=== PATIENT | female | born 1950 | race Two or more races ===

== ENCOUNTER 2019-05-25 08:39 | Day surgery (SDC) | payer MEDICARE ==
[~2019-05-25] VITALS: Ht 157.5 cm; Wt 72.6 kg
[~2019-05-25 08:39] MED LIST: ALBU90OI6 INH; ASPI81CH PO; CHOL10002 PO; CIPR500 PO; CLON.5 PO; CYCL10 PO; DULO30; DULO30 PO; DULO60; ESTR2; ESTR2 PO; FEXO180 PO; FEXO60; HYDMOR4; HYDMOR4 PO; HYOS.125 SL; KETO10 PO; LEVSOD50 PO; LIDO700A20 TOP; LISI5 PO; LOSA25; MARIJUANA-MEDICAL; MOMENI; NAPR500 PO; NITR.4SL SL; OMEP40CA12 PO; OXYACE5T PO; OXYACE7.5T PO; PARO10 PO; PRED20; PREG50; PROM25; PROM25 PO; TRIA80TC TOP; [UNRECOGNIZED DRUG - OTHER] PO; [UNRECOGNIZED DRUG - REMARK]
--- NOTE | 2019-05-25 09:43 | NUR ---
05/25/19 0942 Ami Herrera CHECK ON PT IN PRE OP. WARM BLANKET PROVIDED. PT RESTING COMFORTABLY WITH FAMILY AT BEDSIDE. CALL LIGHT WITHIN REACH. WILL CONTINUE TO MONITOR.
== END 2019-05-25 11:27 | disposition home or self-care (01) ==
LOC: ORSCSDS 08:39
PROVIDERS: Internal Medicine Gastroenterology
PROC: 0DBE8ZX Excision of Large Intestine, Via Natural or Artificial Opening Endoscopic, Diagnostic (ICD-10-PCS; principal; 2019-05-25 10:00)
PROC: 0DB68ZX Excision of Stomach, Via Natural or Artificial Opening Endoscopic, Diagnostic (ICD-10-PCS; principal; 2019-05-25 10:00)
PROC: 0DB98ZX Excision of Duodenum, Via Natural or Artificial Opening Endoscopic, Diagnostic (ICD-10-PCS; principal; 2019-05-25 10:00)
PROC: 0DB58ZX Excision of Esophagus, Via Natural or Artificial Opening Endoscopic, Diagnostic (ICD-10-PCS; principal; 2019-05-25 10:00)
DX: R19.7 Diarrhea, unspecified (principal); K62.5 Hemorrhage of anus and rectum; R10.9 Unspecified abdominal pain; K21.9 Gastro-esophageal reflux disease without esophagitis; K22.70 Barrett's esophagus without dysplasia; K52.831 Collagenous colitis; R11.0 Nausea; K57.30 Diverticulosis of large intestine without perforation or abscess without bleeding; K64.8 Other hemorrhoids; K64.4 Residual hemorrhoidal skin tags; K44.9 Diaphragmatic hernia without obstruction or gangrene; Z80.0 Family history of malignant neoplasm of digestive organs; I10 Essential (primary) hypertension; J45.909 Unspecified asthma, uncomplicated; E03.9 Hypothyroidism, unspecified; E78.00 Pure hypercholesterolemia, unspecified; Z79.899 Other long term (current) drug therapy
CPT/HCPCS: 88305; 88342; J2704; J7120

== ENCOUNTER 2020-11-11 10:22 | Emergency (ER) | payer OTHER ==
[~2020-11-11] VITALS: Ht 157.5 cm; Wt 83.5 kg
[2020-11-11 10:48] LABS: Source, Urine Clean Catch
[2020-11-11 10:55] LABS: BASOPHILS ABSOLUTE AUTO 0.07 K/mm3 (0.00-0.23); BASOPHILS PERCENT AUTO 1 % (0-2); Bilirubin, Urine Neg (Neg); Blood, Urine 3+ (Neg); EOSINOPHILS ABSOLUTE AUTO 0.07 K/mm3 (0.00-0.68); EOSINOPHILS PERCENT AUTO 1 % (0-6); Glucose Qualitative, Urine Neg (Neg); Hematocrit 40.2 % (33.0-51.0); Hemoglobin 12.9 g/dL (11.5-16.0); IMMATURE GRAN ABSOLUTE AUTO 0.03 K/mm3 (0.00-0.10); IMMATURE GRAN PERCENT AUTO 0 % (0-1); Ketones, Urine Neg (Neg); LYMPHOCYTES PERCENT AUTO 31 % (21-46); Leukocyte Esterase, Urine 1+ (Neg); MONOCYTES ABSOLUTE AUTO 0.44 K/mm3 (0.16-1.47); MONOCYTES PERCENT AUTO 5 % (4-13); Mean Corpuscular HGB 30.5 pg (26.0-34.0); Mean Corpuscular HGB Conc 32.1 g/dL (31.5-36.5); Mean Corpuscular Volume 95 fL (80-100); Mean Platelet Volume 10.4 fL (9.1-12.4); NEUTROPHILS ABSOLUTE AUTO 5.74 K/mm3 (1.96-9.15); NEUTROPHILS PERCENT AUTO 62 % (41-73); Nitrite, Urine Neg (Neg); Platelet Count 305 K/mm3 (150-400); Protein, Urine 1+ (Neg); RDW Standard Deviation 45.3 fL (35.1-46.3); Red Blood Cell Count 4.23 M/mm3 (3.80-5.20); Specific Gravity, Urine 1.015 (1.003-1.022); Urobilinogen, Urine NORM (Normal); White Blood Cell Count 9.25 K/mm3 (4.00-11.30); pH, Urine 6.5 (5.0-8.0)
[2020-11-11 11:10] LABS: Appearance, Urine Clear (Clear); Color, Urine Yellow (P-Yellow)
[2020-11-11 11:11] LABS: Alanine Aminotransfer (ALT/SGP 24 U/L (12-78); Albumin, Blood 3.9 g/dL (3.4-5.0); Albumin/Globulin Ratio 1.1 (0.8-1.8); Alk Phos 75 U/L (50-136); Anion Gap 7 mmol/L (6-16); Aspartate Aminotrans (AST/SGOT 11 U/L (12-37); Bilirubin, Total 0.3 mg/dL (0.1-1.0); Blood Urea Nitrogen 12 mg/dL (8-24); Bun/Creatinine Ratio 18.4 (12.0-20.0); CO2, Blood 28 mmol/L (21-32); Calcium, Blood 8.9 mg/dL (8.5-10.1); Chloride, Blood 105 mmol/L (98-108); Creatinine, Blood 0.65 mg/dL (0.40-1.00); Globulin, Blood 3.7 g/dL (2.2-4.0); Glomerular Filtration Rate >60 (60-); Glucose, Blood 97 mg/dL (70-99); Potassium, Blood 3.8 mmol/L (3.5-5.5); Sodium, Blood 140 mmol/L (136-145); Total Protein, Blood 7.6 g/dL (6.4-8.2)
[2020-11-11 11:12] LABS: Bacteria Few /hpf; Squamous Epithelial Cells Few /hpf (Few)
[2020-11-11] MEDS ORDERED: Pyridium100 MG PO (12:56)
[2020-11-11] MEDS ORDERED: CEFP200 PO (12:56)
[2020-11-11] MEDS ORDERED: Norco 5-325 Ta1 EACH PO (13:27)
== END 2020-11-11 13:49 | disposition home or self-care (01) ==
LOC: ER 10:22
PROVIDERS: Emergency Medicine
DX: N39.0 Urinary tract infection, site not specified (principal); Z91.09 Other allergy status, other than to drugs and biological substances; Z91.02 Food additives allergy status; Z91.018 Allergy to other foods; Z79.899 Other long term (current) drug therapy; Z79.82 Long term (current) use of aspirin; Z87.891 Personal history of nicotine dependence
CPT/HCPCS: 74176; 80053; 81001; 85025; 87086; 96374; 96375; 99284-25; A9270; J0696; J1885

== ENCOUNTER 2023-08-12 09:48 | Inpatient (IN) | payer OTHER ==
[~2023-08-12] VITALS: Ht 157.5 cm; Wt 94.0 kg
[~2023-08-12 09:48] MED LIST changes: +Ativan0.5 MG PO; +BUDESONIDE EC3 M6 PO; +CEFP200 PO; +DULOXETINE HCL60 M1 PO; +EUTHYROX50 MCG PO; -LEVSOD50 PO; +Norco 5-325 Ta1 EACH PO; +OMEP20ER PO; -OMEP40CA12 PO; +Pyridium100 MG PO; +TELMISARTAN20 MG PO
[2023-08-12] MEDS ORDERED: METO25ER PO (10:03)
[2023-08-12] MEDS ORDERED: GABA300 PO (10:05)
[2023-08-12] MEDS ORDERED: ALLEGRA HIVES180 MG PO (10:06)
[2023-08-12] MEDS ORDERED: APRISO0.375 GM PO (10:07)
[2023-08-12] MEDS ORDERED: ORAZINC PO (10:08)
[2023-08-12 10:11] LABS: BASOPHILS ABSOLUTE AUTO 0.06 K/mm3 (0.00-0.23); BASOPHILS PERCENT AUTO 1 % (0-2); EOSINOPHILS ABSOLUTE AUTO 0.04 K/mm3 (0.00-0.68); EOSINOPHILS PERCENT AUTO 0 % (0-6); Hematocrit 39.8 % (33.0-51.0); Hemoglobin 12.8 g/dL (11.5-16.0); IMMATURE GRAN PERCENT AUTO 1 % (0-1); LYMPHOCYTES ABSOLUTE AUTO 4.27 K/mm3 (0.84-5.20); LYMPHOCYTES PERCENT AUTO 34 % (21-46); MONOCYTES ABSOLUTE AUTO 0.66 K/mm3 (0.16-1.47); MONOCYTES PERCENT AUTO 5 % (4-13); Mean Corpuscular HGB 31.1 pg (26.0-34.0); Mean Corpuscular HGB Conc 32.2 g/dL (31.5-36.5); Mean Corpuscular Volume 97 fL (80-100); Mean Platelet Volume 10.1 fL (9.1-12.4); NEUTROPHILS ABSOLUTE AUTO 7.45 K/mm3 (1.96-9.15); NEUTROPHILS PERCENT AUTO 59 % (41-73); Platelet Count 334 K/mm3 (150-400); RDW Coefficient Variation 14.7 % (11.7-14.2); RDW Standard Deviation 53.2 fL (35.1-46.3); Red Blood Cell Count 4.12 M/mm3 (3.80-5.20); White Blood Cell Count 12.58 K/mm3 (4.00-11.30)
[2023-08-12 10:22] LABS: Base Excess Venous 0.2 mmol/L; Bicarbonate Venous 24.2 mmol/L (24.0-30.0); PCO2 Venous 47.2 mmHg (38-42); pH Blood Venous 7.35 (7.34-7.37)
[2023-08-12 10:47] LABS: Albumin, Blood 3.5 g/dL (3.4-5.0); Albumin/Globulin Ratio 1.1 (0.8-1.8); Bilirubin, Total 0.2 mg/dL (0.1-1.0); Creatinine, Blood 0.65 mg/dL (0.40-1.00); Globulin, Blood 3.3 g/dL (2.2-4.0); Magnesium, Blood 1.8 mg/dL (1.6-2.4); Potassium, Blood 3.5 mmol/L (3.5-5.5); Total Protein, Blood 6.8 g/dL (6.4-8.2)
[2023-08-12 10:59] LABS: Influenza A, PCR NEGATIVE (NEGATIVE); Influenza B, PCR NEGATIVE (NEGATIVE); Resp Syncytial Virus, PCR NEGATIVE (NEGATIVE); SARS-Cov-2 (COVID-19) PCR, MMC NEGATIVE (NEGATIVE)
[2023-08-12 14:37] VITALS: BP 133/87
[2023-08-12] MEDS ORDERED: NORVASC5 MG PO (15:41)
[2023-08-12] MEDS ORDERED: CYMBALTA60 M1 PO (15:50)
--- NOTE | 2023-08-12 17:24 | NUR ---
SHIFT SUMMARY PT IS A&OX4, BUT IS VERY ANXIOUS. HER RESPIRATIONS HAVE BEEN 20-40'S. W/ ANY ACTIVITY OR TALKING THE PT BECOMES TACHYPEANIC TO THE 40'S. SHE IS ON THE BIPAP 14/6 @ 40% W/ SP02 >90%. PT STATES THE BIPAP HELPS W/ HER SOB. ON TELE SHE HAS BEEN SR 90'S AND DENIES ANY ANGINA/CHEST PRESSURE. FAMILY HAS BEEN IN THE ROOM ALL DAY. THE PT DOES HAVE A SPINAL STIMULATOR THAT REACTS W/ OUR TELE BOX AT TIMES AND CAUSES ARTIFACT. PURWICK SET UP TO SUCTION. FIRE IGNITION RISK HAS BEEN ASSESSED AND EDUCATION HAS BEEN PROVIDED.
--- NOTE | 2023-08-12 17:55 | NUR ---
MED'S WERE RECONCILLED OVER THE PHONE WITH THE PT'S DAUGHTER DAVID.
--- NOTE | 2023-08-12 18:37 | NUR ---
RESP > 40. RT GAVE THE PT A BREATHING TREATMENT AND I MEDICATED HER W/ 0.5MG OF ATIVAN FOR ANXIETY. PT STATES SHE IS FEELING VERY ANXIOUS AND THAT SHE CAN NOT CATCH HER BREATH. AFTER MEDICATING THE PT'S RESPIRATIONS WENT TO THE 20'S AND SHE WAS ABLE TO START RESTING. NO CHANGES IN LUNG SOUNDS SINCE MY ADMISSION ASSESSMENT.
[2023-08-12 19:48] VITALS: BP 145/96
[2023-08-12 23:54] VITALS: BP 124/79
[2023-08-13 03:44] VITALS: BP 119/83
[2023-08-13 03:57] LABS: BASOPHILS ABSOLUTE AUTO 0.02 K/mm3 (0.00-0.23); BASOPHILS PERCENT AUTO 0 % (0-2); EOSINOPHILS PERCENT AUTO 0 % (0-6); Hematocrit 37.3 % (33.0-51.0); Hemoglobin 12.2 g/dL (11.5-16.0); IMMATURE GRAN PERCENT AUTO 1 % (0-1); LYMPHOCYTES ABSOLUTE AUTO 1.45 K/mm3 (0.84-5.20); LYMPHOCYTES PERCENT AUTO 12 % (21-46); MONOCYTES ABSOLUTE AUTO 0.44 K/mm3 (0.16-1.47); MONOCYTES PERCENT AUTO 4 % (4-13); Mean Corpuscular HGB 30.7 pg (26.0-34.0); Mean Corpuscular HGB Conc 32.7 g/dL (31.5-36.5); Mean Corpuscular Volume 94 fL (80-100); Mean Platelet Volume 9.9 fL (9.1-12.4); NEUTROPHILS ABSOLUTE AUTO 9.75 K/mm3 (1.96-9.15); NEUTROPHILS PERCENT AUTO 83 % (41-73); Platelet Count 316 K/mm3 (150-400); Red Blood Cell Count 3.97 M/mm3 (3.80-5.20); White Blood Cell Count 11.76 K/mm3 (4.00-11.30)
[2023-08-13 04:22] LABS: Calcium, Blood 8.8 mg/dL (8.5-10.1); Creatinine, Blood 0.61 mg/dL (0.40-1.00); Potassium, Blood 3.7 mmol/L (3.5-5.5)
--- NOTE | 2023-08-13 04:46 | NUR ---
shift summary patient is alert and oriented x4. perrla. vital signs stable. tele sr 90s. bipap 14/6 at 40% fio2 with spo2 >92%. respirations average in the high 26s, and will increase with activity. patient has slept majority of the night with daughter at bedside, which helps with patients anxiety. patient reports no pain or chest pain/pressure. see shift assessment for further detials. plan of care is up to date. call light within reach.
[2023-08-13 07:36] VITALS: BP 150/91
[2023-08-13 11:18] VITALS: BP 129/95
[2023-08-13 14:21] VITALS: BP 94/51
[2023-08-13 15:32] VITALS: BP 146/95
--- NOTE | 2023-08-13 17:19 | NUR ---
SHIFT SUMMARY PT IS A&OX4, BUT HAS STILL BEEN ANXIOUS THIS SHIFT. SHE HAS BEEN ABLE TO TAKE TWO BREAKS FROM THE BIPAP SO SHE COULD DRINK ENSURES AND GET HER MOUTH CLEANED. THE PT MOVES IND IN BED AND HAS A HEATING PAD TO HELP WITH COMFORT. FAMILY HAS BEEN AT THE BEDSIDE ALL SHIFT AND HAVE BEEN UPDATES/INVOLVED IN CARE. TTO HELP WITH HER ANXIETY, DR. RANGEL STARTED THE PT ON BUSPAR. PT HAS BEEN TOLERATING IT WELL. HER RESPIRATIONS HAVE BEEN SUSTAINING 20'S-30'S. BIPAP SETTINGS ARE 14/7 @35%. ON TELE SHE HAS BEEN SR 80'S, W/ NO COMPLAINTS OF CHEST PAIN OR ANGINA. FAMILY AND PT HAVE BEEN EDUCATED ON FIRE IGNITION RISK.
[2023-08-13 20:00] VITALS: BP 127/86
[2023-08-14 00:30] VITALS: BP 115/91
[2023-08-14 04:30] VITALS: BP 144/101
[2023-08-14 04:36] LABS: BASOPHILS ABSOLUTE AUTO 0.01 K/mm3 (0.00-0.23); BASOPHILS PERCENT AUTO 0 % (0-2); EOSINOPHILS ABSOLUTE AUTO 0.02 K/mm3 (0.00-0.68); EOSINOPHILS PERCENT AUTO 0 % (0-6); IMMATURE GRAN ABSOLUTE AUTO 0.13 K/mm3 (0.00-0.10); IMMATURE GRAN PERCENT AUTO 1 % (0-1); LYMPHOCYTES ABSOLUTE AUTO 0.95 K/mm3 (0.84-5.20); LYMPHOCYTES PERCENT AUTO 8 % (21-46); MONOCYTES ABSOLUTE AUTO 0.35 K/mm3 (0.16-1.47); MONOCYTES PERCENT AUTO 3 % (4-13); Mean Corpuscular HGB 30.8 pg (26.0-34.0); Mean Corpuscular HGB Conc 32.4 g/dL (31.5-36.5); Mean Corpuscular Volume 95 fL (80-100); Mean Platelet Volume 10.6 fL (9.1-12.4); NEUTROPHILS ABSOLUTE AUTO 9.88 K/mm3 (1.96-9.15); NEUTROPHILS PERCENT AUTO 87 % (41-73); Platelet Count 321 K/mm3 (150-400); RDW Coefficient Variation 15.2 % (11.7-14.2); Red Blood Cell Count 3.89 M/mm3 (3.80-5.20); White Blood Cell Count 11.34 K/mm3 (4.00-11.30)
[2023-08-14 05:01] LABS: Albumin, Blood 3.2 g/dL (3.4-5.0); Albumin/Globulin Ratio 1.1 (0.8-1.8); Bilirubin, Total 0.4 mg/dL (0.1-1.0); Bun/Creatinine Ratio 32.1 (12.0-20.0); Calcium, Blood 8.8 mg/dL (8.5-10.1); Creatinine, Blood 0.65 mg/dL (0.40-1.00); Globulin, Blood 2.8 g/dL (2.2-4.0); Phosphorus, Blood 3.5 mg/dL (2.5-4.9); Potassium, Blood 3.6 mmol/L (3.5-5.5)
--- NOTE | 2023-08-14 06:50 | NUR ---
SHIFT SUMMARY PT REMAINS A&O X4. VSS; PT REMAINS ON BIPAP 06/05 AT 35% FIO2. PT TOLERATING MASK WELL, OCCASSIONALLY BECOMES ANXIOUS BUT ABLE TO BE VERBALLY CALMED. PT ABLE TO TAKE SMALL BREAKS FROM BIPAP TO TAKE MEDICATION OR TAKE DRINKS, ALTHOUGH PT DOES GET MILDLY ANXIOUS. NC ON PT DURING THIS TIME, SPO2 >95%, PT DID NOT DESAT. LS COARSE AND WHEEZES THROUGHOUT, PT HAS MOIST/LOOSE COUGHT ALTHOUGH IS NOT PRODUCTIVE. PT DECLINED ORAL CARE D/T "FEELING LIKE SHE CAN'T BREATH". NO ACUTE CHANGES WITH PT OVERNIGHT. PUREWICK AND ATTENDS IN PLACE. PT REPOSITIONS INDEP. WILL UPDATE ONCOMING RN.
[2023-08-14 07:35] VITALS: BP 132/105
--- NOTE | 2023-08-14 09:49 | NUR ---
Pt resting in bed and wearing BIPAP. Pt is A&OX4. Pt's family at bedside. Pt reports living at home and is . She reports family living in an apartment contected to her home. At baseline Pt reports being independent of her ADLs. She does report difficulty with ambulation any significant distance and is fatigued by the time she gets to the other end of the house. Educated on the importance of rest periods to recover. Educated on the importance of considering environmental factors to assist with reducing risks of exacerbations. Offered suggestions and answered questions. Continued supportive visit and reviewed plan of care. Pt and family express appreciation and report no new concerns at this time. Spoke with Dr Garcia, Primary RN Cindy, and discussed case. Palliative Care will remain available
[2023-08-14 11:18] VITALS: BP 148/94
--- NOTE | 2023-08-14 13:09 | NUR ---
PT HAD AN ANXIETY ATTACK ABOUT 1300 SHE HAD MANY VISITORS IN THE ROOM AND THE PT WAS OVER STIMULATED. WHEN SHE REPOSITIONED HERSELF IN THE CHAIR SHE LOST HER BREATH AND HAD A PANIC ATTACK. I WAS CALLED INTO THE ROOM BY FAMILY AND I EVALUATED THE PT. RESPIRATIONS WERE UP IN THE 40'S WHILE ON THE AIRVO 40L 30% FI02. I LISTENED TO THE PT'S LUNGS AND HER WHEEZES WERE WORSE. I CALLED RT FOR ANOTHER BREATHING TREATMENT AND I MEDICATED THE PT WITH 0.5MG ATIVAN AND HER SCHEDULED BUSPAR. TOMASA Mccloud FROM RT SWITCHED THE PT BACK TO HER BIPAP 14/7 @ 30% AND GAVE HER A BREATHING TREATMENT. AFTER MEDICATIONS AND BEING PLACED ON THE BIPAP RESPIRATIONS CAME DOWN 20'S-30'S. I SPOKE TO FAMILY AND LET THEM KNWO ONL 2-3 PEOPLE AT A TIME AND WE NEED TO CORDINATE WITH EACHOTHER WHILE ENCOURAGING THE PT TO REST. THE DAUGHTER COURTNEY WAS NOT IN THE ROOM AT THE TIME AND WAS CALLED AND UPDATES. WE HAVE BEEN LETTING COURTNEY STAY 24/7 TO HELP WITH THE PT'S ANXIETY. SHE STATED SHE WILL HAVE ANOTHER CONVERSATION WITH THE FAMILY.
[2023-08-14 15:08] VITALS: BP 114/92
--- NOTE | 2023-08-14 17:21 | NUR ---
SHIFT SUMMARY PT IS A&OX4 AND HAS STATED THAT SHE IS FEELING SLIGHTLY BETTER TODAY. SHE HAD ONE PANIC ATTACK AND HAD TO BE MEDICATED W/ ATIVAN. SEE PREVIOUS NOTE FOR MORE INORMATION. THE PT HAS BEEN BETWEEN THE AIRVO 40L @ 30% AND THE BIPAP 14/7 @30%. WE HAVE MAINTAINED HER SP02 >93% BUT SHE HAS BEEN TACHYPEANIC W/ RESP'S OF 20-40'S. WE WERE ABLE TO GET UP TO THE CHAIR TODAY FOR A FEW HOURS. ON TELE SHE HAS BEEN SR 90'S AND SHE DENIES ANY ANGINA. SHE DOES GET VERY SOB AND ANXIOUS WHEN LAYING FLAT. THE DAUGHTER COURTNEY WILL BE STAYING WITH THE PT OVER NIGHT. FIRE IGNITION RISK HAS BEEN ASSESSED.
[2023-08-14 20:00] VITALS: BP 146/96
--- NOTE | 2023-08-14 20:14 | NUR ---
ASSUMPTION OF CARE THIS RN ASSUMED CARE OF PT AT 1915, REPORT FROM VIRIDIANA LEHMAN. PT A&O X4, UP IN ROOM. VSS; PT ON AIRVO AT 40 L, 30% FIO2. PT TOLERATING WELL. PT REPORTS "FEELING SOME IMPROVEMENT" ALTHOUGH NOT ABLE TO TOLERATE LYING FLAT IN BED OR DURING CARE. LS IMPROVED FROM PREVIOUS, ALTHOUGH STILL COARSE AND WHEEZES NOTED. PT DENIES CP OR PRESSURE. C/O CHRONIC PAIN THROUHGOUT BODY BUT OTHERWISE DENIES OTHER CONCERNS OR NEEDS. PUREWICK IN PLACE TO SUCTION AND ATTENDS IN PLACE. CALL LIGHT IN REACH. DAUGHTER AT BEDSIDE.
[2023-08-15 00:30] VITALS: BP 113/80
[2023-08-15 05:00] VITALS: BP 129/83
[2023-08-15 05:44] LABS: BASOPHILS ABSOLUTE AUTO 0.01 K/mm3 (0.00-0.23); BASOPHILS PERCENT AUTO 0 % (0-2); EOSINOPHILS PERCENT AUTO 0 % (0-6); Hematocrit 36.2 % (33.0-51.0); Hemoglobin 11.9 g/dL (11.5-16.0); IMMATURE GRAN ABSOLUTE AUTO 0.16 K/mm3 (0.00-0.10); IMMATURE GRAN PERCENT AUTO 2 % (0-1); LYMPHOCYTES ABSOLUTE AUTO 0.88 K/mm3 (0.84-5.20); LYMPHOCYTES PERCENT AUTO 8 % (21-46); MONOCYTES ABSOLUTE AUTO 0.46 K/mm3 (0.16-1.47); MONOCYTES PERCENT AUTO 4 % (4-13); Mean Corpuscular HGB 31.2 pg (26.0-34.0); Mean Corpuscular HGB Conc 32.9 g/dL (31.5-36.5); Mean Corpuscular Volume 95 fL (80-100); Mean Platelet Volume 10.2 fL (9.1-12.4); NEUTROPHILS ABSOLUTE AUTO 9.17 K/mm3 (1.96-9.15); NEUTROPHILS PERCENT AUTO 86 % (41-73); Platelet Count 298 K/mm3 (150-400); RDW Coefficient Variation 14.6 % (11.7-14.2); RDW Standard Deviation 51.4 fL (35.1-46.3); Red Blood Cell Count 3.82 M/mm3 (3.80-5.20); White Blood Cell Count 10.68 K/mm3 (4.00-11.30)
[2023-08-15 06:05] LABS: Albumin, Blood 3.2 g/dL (3.4-5.0); Anion Gap 5 mmol/L (6-16); Blood Urea Nitrogen 24 mg/dL (8-24); Bun/Creatinine Ratio 32.3 (12.0-20.0); CO2, Blood 29 mmol/L (21-32); Calcium, Blood 8.6 mg/dL (8.5-10.1); Chloride, Blood 105 mmol/L (98-108); Creatinine, Blood 0.74 mg/dL (0.40-1.00); Glomerular Filtration Rate 87 (60-); Glucose, Blood 164 mg/dL (70-99); Magnesium, Blood 2.1 mg/dL (1.6-2.4); Phosphorus, Blood 3.7 mg/dL (2.5-4.9); Potassium, Blood 3.9 mmol/L (3.5-5.5); Sodium, Blood 139 mmol/L (136-145)
--- NOTE | 2023-08-15 06:07 | NUR ---
SHIFT SUMMARY PT REMAINS A&O X4. VSS. PT ABLE TO SWITCH TO AIRVO AT 40 L , 30% FIO2 FOR A FEW HOURS, THEN PT HAD A SMALL ANXIETY ATTACK. PT SWITCHED BACK TO BIPAP AT 14/7, 30% FIO2. PT MEDICATED PER EMAR, WELL ABLE TO VERBALLY SIGN BUILDER PT THROUGH CALMING. PT HAD ANOTHER ANXIETY ATTACK AROUND 0300 D/T "WAKING UP AND FEELING SCARED, THEN NOT BEING ABLE TO FIND CALL LIGHT". THIS RN SHOWED PT THAT HER CALL LIGHT IS RIGHT NEXT TO HER, TALKED HER THROUGH AND MEDICATION PER EMAR. PT ABLE TO CALM DOWN AND RETURN TO SLEEPING. NO OTHER CHANGES OR ACUTE EVENTS OVERNIGHT. PUREWICK AND ATTENDS IN PLACE; CHANGED PRN. DAUGHTER AT BEDSIDE THROUHGOUT THE NIGHT. WILL UPDATE ONCOMING RN
[2023-08-15 08:21] VITALS: BP 162/118
--- NOTE | 2023-08-15 10:31 | NUR ---
PT A&OX4, ABLE TO MAKE NEEDS KNOWN. PT SAID SHE GETS ANXIOUS AT TIMES, BUT DENIES ANXIETY THIS MORNING. PT HAS TOP AND BOTTOM DENTURES. SHE AT ABOUT 80% OF HER BREAKFAST. LUNG SOUNDS COARSE THROUGHOUT, PT WAS ON BIPAP THIS MORNING 06/05 @30%, NOW ON AIRVO 40L @ 30%, PT DENIES SOB. HR SR 80S-90S, PB STABLE, PT DENIES CHEST PAIN/PRESSURE. PT SAID SHE HAS AN IMPLANTED DEVICE IN HER BACK THAT HELPS CONTROL HER BOWELS AND BLADDER. PUREWICK IN PLACE AND DRAINING YELLOW URINE WITH SUCTION. BRUISING OF SKIN THROUGHOUT.POWERGLIDE IN R UPPER ARM PATENT, ABLE TO DRAW BLOOD, FLUSHED AND SALINE LOCKED. PT UP IN CHAIR FOR BREAKFAST THIS MORNING. SHE HAS BEEN VISITING WITH HER DAUGHTER ALL MORNING. CALL LIGHT WITHIN REACH.
[2023-08-15 12:02] VITALS: BP 132/90
--- NOTE | 2023-08-15 13:51 | NUR ---
Patient is sitting on a chair and alert. She immediately tells me about her breathing issues and her high anxiety and her daughter fills me in on her bipolar and depression issues. While I listen empathically, patient tells me about the loss of her SO who 8 yrs ago and her struggles to maintain her mental health and physical health after his . She Has a rich Amish background and moves toward her alberto to keep her grounded and at peace. I suggest some mindfulness practices, breathing techniques and helpful Biblical texts. I also normalize her experience, encourage self-care and provide recitation of scripture and prayer. Patient responded well and showed signs of increased peace. I will continue to remain available to pateint and family.
[2023-08-15 15:27] VITALS: BP 151/100
--- NOTE | 2023-08-15 17:33 | NUR ---
PT SUMMARY NO ACUTE CHANGES, SEE PREVIOUS NOTES. PT HAD A FEW VISITORS TODAY. SHE TOOK A NAP THIS AFTERNOON FOR ROUGHLY AN HOUR. PT'S LUNG SOUNDS WERE COARSE THIS MORNING, THEY SOUND CLEAR YET DIMINISHED AT BASES THIS EVENING. PT IS ON AIRVO 40L @ 30%, INTERMITTENT SOB, O2 SATURATION ABOVE 90%, AT TIMES DROPS TO MID/HIGH 80'S WHEN SHE IS TALKING BUT QUICKLY COMES BACK UP. PT HAS BEEN USING INCENTIVE SPIROMETER THROUGHOUT THE DAY. PT SAID HER NOSE AND THROAT ARE GETTING DRY, LUBE APPLIED TO INSIDE OF NOSE AND EDUCATED HOW TO APPLY, PT STATED HER NOSE FELT BETTER AFTER. WATER GIVEN FOR THROAT, AND ORDERED CEPACOL DROPS FOR HER THROAT, PT CURRENTLY EATING DINNER AND WOULD LIKE HER FIRST CEPACOL DROP AFTER DINNER. PT CONTINUES TO DENY CHEST PAIN/PRESSURE, BP STABLE, HR 90'S-100'S. PUREWICK CONTINUES TO SUCTION YELLOW URINE. PT SAID THE R WHITE CLIP ON HER BIPAP KEPT COMING UNDONE LAST NIGHT, CALLED RT AND THEY REPLACED IT FOR HER. PT IN GOOD SPIRITS TODAY, SHE SAID SHE FEELS BETTER TODAY. PT'S DAUGHTER STILL IN THE ROOM WITH HER. CALL LIGHT WITHIN REACH.
[2023-08-15 20:00] VITALS: BP 148/101
--- NOTE | 2023-08-15 20:42 | NUR ---
ASSUMPTION OF CARE THIS RN ASSUMED CARE OF PT AT 1915. PT UP IN ROOM, WATCHING TV. DAUGHTER AT BEDSIDE. VSS. PT ON BIPAP; 06/05 30% FIO2. PT TOLERATING BIPAP MASK WELL AT THIS TIME. PT DENIES CP OR PRESSURE, DENIES ANXIETY. PT STATES SHE HAD A "PRETTY GOOD DAY" OVERALL AND IS FEELING LIKE SHE IS IMPROVING EACH DAY. LS DIMINISHED IN BASES, PT MUCH CLEARER THAN PREVIOUS. PT DENIES PAIN AT THIS TIME. PUREWICK IN PLACE TO SUCTION AND ATTENDS IN PLACE. PT DENIES ANY NEEDS OR CONCERNS AT THIS TIME. CALL LIGHT IN REACH
[2023-08-16] VITALS (10 sets, daily range): BP systolic 119–145; BP diastolic 11–114
[2023-08-16 04:05] LABS: BASOPHILS ABSOLUTE AUTO 0.02 K/mm3 (0.00-0.23); BASOPHILS PERCENT AUTO 0 % (0-2); EOSINOPHILS PERCENT AUTO 0 % (0-6); Hematocrit 36.2 % (33.0-51.0); Hemoglobin 12.1 g/dL (11.5-16.0); IMMATURE GRAN ABSOLUTE AUTO 0.15 K/mm3 (0.00-0.10); IMMATURE GRAN PERCENT AUTO 2 % (0-1); LYMPHOCYTES ABSOLUTE AUTO 0.87 K/mm3 (0.84-5.20); LYMPHOCYTES PERCENT AUTO 10 % (21-46); MONOCYTES ABSOLUTE AUTO 0.47 K/mm3 (0.16-1.47); MONOCYTES PERCENT AUTO 5 % (4-13); Mean Corpuscular HGB 31.2 pg (26.0-34.0); Mean Corpuscular HGB Conc 33.4 g/dL (31.5-36.5); Mean Corpuscular Volume 93 fL (80-100); Mean Platelet Volume 10.2 fL (9.1-12.4); NEUTROPHILS ABSOLUTE AUTO 7.28 K/mm3 (1.96-9.15); NEUTROPHILS PERCENT AUTO 83 % (41-73); Platelet Count 295 K/mm3 (150-400); RDW Coefficient Variation 14.2 % (11.7-14.2); RDW Standard Deviation 48.8 fL (35.1-46.3); Red Blood Cell Count 3.88 M/mm3 (3.80-5.20); White Blood Cell Count 8.79 K/mm3 (4.00-11.30)
[2023-08-16 04:22] LABS: Bun/Creatinine Ratio 30.7 (12.0-20.0); Calcium, Blood 8.4 mg/dL (8.5-10.1); Creatinine, Blood 0.72 mg/dL (0.40-1.00); Potassium, Blood 3.7 mmol/L (3.5-5.5)
--- NOTE | 2023-08-16 06:31 | NUR ---
SHIFT SUMMARY PT REMAINS A&O X4; VSS. NO ACUTE EVENTS OVERNIGHT. REMAINS ON BIPAP; 06/05, 30% FIO2. PT TOLERATING WELL, LS IMPROVING. PT DID NOT HAVE ANY ANXIETY ATTACKS OVERNIGHT. PT RESTED WELL. PT ABLE TO USE BSC NOW WITH MINIMAL ASSISTANCE. NO BM THIS SHIFT. DAUGHTER AT BEDSIDE THROUGHOUT THE NIGHT. CALL LIGHT IN REACH. WILL UPDATE ONCOMING RN
--- NOTE | 2023-08-16 10:32 | NUR ---
PT ALERT AND ORIENTED X4, ABLE TO MAKE NEEDS KNOWN AND ANSWERS QUESTIONS APPROPRIATELY. PT SLEPT ON BIPAP 14/ @ 30%, SWITCHED TO AIRVO AT 40L @ 30%. IN TO SEE PT, PT AGREED TO TRY SWITCHING TO 4L NC AND SEE HOW IT GOES. PT MEDICATED PER EMAR BEFORE SWITCHING, PT NOW ON 4L NC AND TOLERATING WELL, O2 SATURATION ABOVE 93%, PT DENIES SOB AT THIS TIME. INTERMITTENT SOB WITH EXERTION. PT SITTING UPRIGHT IN CHAIR VISITING WITH HER DAUGHTER. NO LONGER USING PURWICK, PT WEARING BRIEF AND GETTING UP TO BEDSIDE COMMODE, TOLERATING WELL. POWERGLIDE TO R UPPER ARM DRAWS BACK BLOOD, PATENT, FLUSHED AND SALINE LOCKED. HR SR/ST 90S-100S, PT DENIES CHEST PAIN/PRESSURE. CALL LIGHT WITHIN REACH.
--- NOTE | 2023-08-16 11:14 | NUR ---
PT HAD BREATHING TREATMENT AROUND 1100, PT SAYS SHE IS HAVING MORE DIFFICULTY BREATHING NOW. SWITCHED HER BACK TO AIRVO 40L @ 30%. PT SAYS SHE WANTS TO TRY THE 4L NC AGAIN LATER.
--- NOTE | 2023-08-16 12:14 | NUR ---
PT BACK ON 4L NC WHILE EATING LUNCH. FAMILY IN VISITING WITH PT. CALL LIGHT WITHIN REACH.
--- NOTE | 2023-08-16 14:42 | NUR ---
AT 1330 OR SO, PT WENT BACK ON BIPAP SHE WAS FEELING ANXIOUS AND SOB. BIPAP BC PIECE BROKE ON AIRVO, RESPIRATORY THERAPY BROUGHT NEW PIECE AND SAID SHE SHOULD STAY ON BIPAP FOR AWHILE TO FEEL BETTER. PT SAID SHE WAS TIRED AND SHE DECIDED TO TAKE A NAP. CALL LIGHT WITHIN REACH.
[2023-08-17 03:48] VITALS: BP 150/106
[2023-08-17 04:08] LABS: BASOPHILS ABSOLUTE AUTO 0.01 K/mm3 (0.00-0.23); BASOPHILS PERCENT AUTO 0 % (0-2); EOSINOPHILS ABSOLUTE AUTO 0.01 K/mm3 (0.00-0.68); EOSINOPHILS PERCENT AUTO 0 % (0-6); Hematocrit 35.4 % (33.0-51.0); Hemoglobin 12.1 g/dL (11.5-16.0); IMMATURE GRAN ABSOLUTE AUTO 0.19 K/mm3 (0.00-0.10); IMMATURE GRAN PERCENT AUTO 2 % (0-1); LYMPHOCYTES ABSOLUTE AUTO 0.86 K/mm3 (0.84-5.20); LYMPHOCYTES PERCENT AUTO 10 % (21-46); MONOCYTES ABSOLUTE AUTO 0.43 K/mm3 (0.16-1.47); MONOCYTES PERCENT AUTO 5 % (4-13); Mean Corpuscular HGB 31.1 pg (26.0-34.0); Mean Corpuscular HGB Conc 34.2 g/dL (31.5-36.5); Mean Corpuscular Volume 91 fL (80-100); Mean Platelet Volume 10.2 fL (9.1-12.4); NEUTROPHILS ABSOLUTE AUTO 7.19 K/mm3 (1.96-9.15); NEUTROPHILS PERCENT AUTO 83 % (41-73); Platelet Count 285 K/mm3 (150-400); RDW Coefficient Variation 14.1 % (11.7-14.2); RDW Standard Deviation 47.7 fL (35.1-46.3); Red Blood Cell Count 3.89 M/mm3 (3.80-5.20); White Blood Cell Count 8.69 K/mm3 (4.00-11.30)
[2023-08-17 04:32] LABS: Bun/Creatinine Ratio 27.1 (12.0-20.0); Calcium, Blood 8.4 mg/dL (8.5-10.1); Creatinine, Blood 0.74 mg/dL (0.40-1.00); Potassium, Blood 3.9 mmol/L (3.5-5.5)
--- NOTE | 2023-08-17 04:36 | NUR ---
SHIFT SUMMARY THIS RN ASSUMED CARE OF PATIENT AT 1900. NO ACUTE CHANGES OVERNIGHT. PT A&O X4. ABLE TO MAKE NEEDS KNOWN. PT ON BIPAP 14/7 AND 30% FIO2. PT WITH ANXIETY OCCASIONALLY DURING THIS SHIFT; MEDICATED PER EMAR X1 WITH IV ATIVAN. PRN BREATHING TREATMENTS PER RT. PT SBA TO BSC. TACHYPNEA NOTED. DYSPNEA WITH EXERTION AND CONVERSATION. OTHERWISE VITALS REMAIN STABLE. DAUGHTER AT BEDSIDE THROUGHOUT THIS SHIFT. BED IN LOWEST POSITION AND CALL LIGHT WITHIN REACH. THIS RN WILL REPORT TO ONCOMING DAYSHIFT RN.
[2023-08-17 08:13] VITALS: BP 145/112
[2023-08-17 12:06] VITALS: BP 133/88
--- NOTE | 2023-08-17 14:13 | NUR ---
PT WAS ON 4L NC FOR THE MAJORITY OF THE DAY. RT JUST SWITCHED PT BACK TO BIPAP SHE WAS FEELING LIKE IT WAS DIFFICULT TO BREATH. RIGHT BEFORE HAVING DIFFICULTY PT WAS UP TO USE COMMODE, HAD TO CLEAN PT UP, CHANGED GOWN, ATTENDS, TELE STICKERS, LINENS, AND DID BED BATH. PT IS RESTING IN BED WITH FAMILY IN ROOM, CALL LIGHT WITHIN REACH.
--- NOTE | 2023-08-17 16:13 | NUR ---
SHIFT SUMMARY PT CONTINUES TO BE ALERT AND ORIENTED X 4. VITALS CONTINUE TO BE STABLE. PT HAS GONE BACK AND FORTH BETWEEN BIPAP AT 14/7 @ 30% AND 4L NC. PT PREFERS BIPAP AND NC OVER AIRVO, SHE SAID THE AIRVO GIVES HER A HEADACHE. PT HAD QUITE AN ACTIVE DAY WITH VISITING WITH FAMILY AND HER DOG MOST OF THE DAY, AND STANDING WHILE GETTING CLEANED UP AFTER USING THE BEDSIDE COMMODE AND HAVING A BOWEL MOVEMENT. PT PREFERS TO STAND WHILE GETTING CLEANED UP INSTEAD OF LAYING DOWN BECUASE IT'S MORE DIFFICULT FOR HER TO BREATH WHEN LAYING DOWN. PT WAS ABLE TO TOLERATE NC LONGER TODAY THAN SHE DID YESTERDAY. TODAY SHE WAS UTILIZING 4L NC FROM AROUND 0830 UNTIL AROUND 1350, AND FOR A SHORT PERIOD OF TIME AFTER THAT. SHE CURRENTLY TAKING A NAP IN HER ROOM WITH BIPAP ON WITH HER DAUGHTER IN THE ROOM. CALL LIGHT WITHIN REACH.
--- NOTE | 2023-08-17 16:30 | NUR ---
Spoke with Primary RN Moraima and discussed case. Pt on BIPAP with anxiety contributing towards need. Pt resting in bed with her eyes closed wearing BIPAP. Pt left undisturbed at this time. Pt's daughter at bedside. Offered supportive visit and therapeutic listening. Answered questions and offered suggestions for when Pt is D/C from the hospital. Daughter expresses appreciation and reports no new concerns at this time. Palliative Care will remain available
[2023-08-17 17:18] VITALS: BP 131/99
--- NOTE | 2023-08-17 17:19 | NUR ---
PT IS SLEEPING SOUNDLY. WOKE PT UP TO ASK IF SHE WOULD LIKE DINNER NOW OR TO WAIT, SHE SAID SHE WOULD LIKE TO WAIT AND QUICKLY FELL BACK TO SLEEP. PT HAS NOT HAD HER PRILOSEC EITHER BECAUSE SHE HAS BEEN SLEEPING. PLAN TO GIVE IT TO PT WHEN SHE WAKES UP. DAUGHTER IN ROOM WITH HER. CALL LIGHT WITHIN REACH.
[2023-08-17 20:10] VITALS: BP 148/106
[2023-08-18 00:20] VITALS: BP 151/101
[2023-08-18 04:53] VITALS: BP 157/108
--- NOTE | 2023-08-18 05:18 | NUR ---
SHIFT SUMMARY THIS RN ASSUMED CARE OF PATIENT AT 1900. PT A&O X4. ABLE TO MAKE NEEDS KNOWN. UP TO BSC WITH SBA. BIPAP 14/7 30% FIO2. 4L VIA NC USED WHILE PT HAVING FOOD/FLUIDS/PILLS. RR 20-26. OCCASIONAL WHEEZING. RT WITH PRN BREATHING TREATMENTS. MEDICATED PER EMAR FOR PAIN/ANXIETY. VITALS STABLE. DAUGHTER AT BEDSIDE THROUGHOUT THIS SHIFT. BED IN LOWEST POSITION AND CALL LIGHT WITHIN REACH. THIS RN WILL REPORT TO ONCOMING RN.
[2023-08-18 05:23] LABS: BASOPHILS ABSOLUTE AUTO 0.01 K/mm3 (0.00-0.23); BASOPHILS PERCENT AUTO 0 % (0-2); EOSINOPHILS PERCENT AUTO 0 % (0-6); Hematocrit 36.8 % (33.0-51.0); Hemoglobin 12.2 g/dL (11.5-16.0); IMMATURE GRAN ABSOLUTE AUTO 0.22 K/mm3 (0.00-0.10); IMMATURE GRAN PERCENT AUTO 2 % (0-1); LYMPHOCYTES ABSOLUTE AUTO 0.79 K/mm3 (0.84-5.20); LYMPHOCYTES PERCENT AUTO 8 % (21-46); MONOCYTES ABSOLUTE AUTO 0.52 K/mm3 (0.16-1.47); MONOCYTES PERCENT AUTO 6 % (4-13); Mean Corpuscular HGB 30.8 pg (26.0-34.0); Mean Corpuscular HGB Conc 33.2 g/dL (31.5-36.5); Mean Corpuscular Volume 93 fL (80-100); Mean Platelet Volume 10.5 fL (9.1-12.4); NEUTROPHILS ABSOLUTE AUTO 7.82 K/mm3 (1.96-9.15); NEUTROPHILS PERCENT AUTO 84 % (41-73); Platelet Count 298 K/mm3 (150-400); RDW Standard Deviation 47.7 fL (35.1-46.3); Red Blood Cell Count 3.96 M/mm3 (3.80-5.20); White Blood Cell Count 9.36 K/mm3 (4.00-11.30)
[2023-08-18 05:57] LABS: Bun/Creatinine Ratio 30.1 (12.0-20.0); Calcium, Blood 8.4 mg/dL (8.5-10.1); Creatinine, Blood 0.76 mg/dL (0.40-1.00); Potassium, Blood 3.9 mmol/L (3.5-5.5)
[2023-08-18 07:48] VITALS: BP 165/100
[2023-08-18 12:35] VITALS: BP 147/102
--- NOTE | 2023-08-18 13:11 | NUR ---
Spiritual care visit conducted. Patient is sitting up in bed and alert. Her dtr Rajwinder is bedside. Patient talks at length about her panic and anxiety. We explore visualization and breathing techniques and recitation of Scriptures and inspiring quotes. Rajwinder helps reinforce these concepts with the patient. Patient shares more of her mental health struggles and how her only place of stability has been her alberto. She is tearful as she speaks of God's cheri, strength and love. We all hold hands and pray for the patient and for peace in the moments of panic. Patient responded well and showed signs of being more grounded and having reduced anxiety. I will continue to remain available to patient and family.
[2023-08-18 15:03] VITALS: BP 140/95
--- NOTE | 2023-08-18 17:38 | NUR ---
SHIFT SUMMARY ALERT, ORIENTED, PLEASANT, COOPERATIVE. ANXIOUS THROUGHOOUT SHIFT. MEDICATED FOR ANXIETY PER EMAR. SBA TO BSC, WORKED WELL WITH PHYSICAL THERAPY. TELE NSR 80-100, NEUROSTIMULATOR TO BACK CAUSING ARTIFACT AND INTERFERENCE ON TELE. ALTERNATES BETWEEN BIPAP AND 4L NC FOR DYSPNEA RELATED TO ANXIETY AND UPPER AIRWAY/VOCAL CHORD DISORDER. LS CLEAR, NO DESATURATIONS. TOLERATING ORDERED DIET AND LIQUIDS. VOIDING WELL. SHOWER COMPLETED THIS SHIFT. DAUGHTER ATTENTIVE AND SUPPORTIVE AT BEDSIDE. WILL REPORT TO ROCK CRUSHER RN.
[2023-08-18 20:17] VITALS: BP 154/107
[2023-08-19 00:01] VITALS: BP 159/111
[2023-08-19 03:54] VITALS: BP 163/108
[2023-08-19 04:03] LABS: BASOPHILS ABSOLUTE AUTO 0.02 K/mm3 (0.00-0.23); BASOPHILS PERCENT AUTO 0 % (0-2); EOSINOPHILS PERCENT AUTO 0 % (0-6); Hematocrit 36.5 % (33.0-51.0); Hemoglobin 12.3 g/dL (11.5-16.0); IMMATURE GRAN ABSOLUTE AUTO 0.26 K/mm3 (0.00-0.10); IMMATURE GRAN PERCENT AUTO 3 % (0-1); LYMPHOCYTES PERCENT AUTO 7 % (21-46); MONOCYTES ABSOLUTE AUTO 0.39 K/mm3 (0.16-1.47); MONOCYTES PERCENT AUTO 4 % (4-13); Mean Corpuscular HGB 31.1 pg (26.0-34.0); Mean Corpuscular HGB Conc 33.7 g/dL (31.5-36.5); Mean Corpuscular Volume 92 fL (80-100); NEUTROPHILS ABSOLUTE AUTO 8.04 K/mm3 (1.96-9.15); NEUTROPHILS PERCENT AUTO 86 % (41-73); Platelet Count 266 K/mm3 (150-400); RDW Standard Deviation 47.8 fL (35.1-46.3); Red Blood Cell Count 3.95 M/mm3 (3.80-5.20); White Blood Cell Count 9.41 K/mm3 (4.00-11.30)
[2023-08-19 04:33] LABS: Calcium, Blood 8.3 mg/dL (8.5-10.1); Creatinine, Blood 0.66 mg/dL (0.40-1.00)
--- NOTE | 2023-08-19 05:21 | NUR ---
SHIFT SUMMARY THIS RN ASSUMED CARE OF PATIENT AT 1900. NO ACUTE CHANGES OVERNIGHT. ON BIPAP 06/05 WITH 30% FIO2. 4L VIA NC USED WHILE EATING/DRINKING. PT A&O X4. ABLE TO MAKE NEEDS KNOWN. VITALS REMAIN STABLE. DAUGHTER AT BEDSIDE. PT ABLE TO REPOSITION SELF IN BED INDEPENDENTLY. BED IN LOWEST POSITION AND CALL LIGHT WITHIN REACH. THIS RN WILL REPORT TO ONCOMING DAYSHIFT RN.
[2023-08-19 09:42] VITALS: BP 144/100
[2023-08-19 12:41] VITALS: BP 141/108
[2023-08-19 18:15] VITALS: BP 146/93
--- NOTE | 2023-08-19 18:31 | NUR ---
SHIFT SUMMARY ALERT, ORIENTED, PLEASANT, COOPERATIVE. ABLE TO MANAGE ANXIETY WITH PO ATIVAN, HYDROXYZINE, AND PROPRANALOL. STILL GETS ANXIOUS AND SOB WITH EXERTION AND POSITIONALLY KAIDEN WHEN LYING BACK OR DOWN. BIPAP V60 SWITCHED OUT FOR V30. MEDICAL STATUS NO TELE. LUNS SOUNDS CLEAR, NO DESATURATIONS. EXP WHEEZE WHEN SOB COMING FROM UPPER AIRWAY. TOLERATING DIET AND LIQUIDS. VOIDING WELL. MEDICATED FOR CHRONIC NECK AND BACK PAIN WITH PO MEDS PER EMAR. DAUGHTER ATTENTIVE AND SUPPORTIVE AT BEDSIDE.
[2023-08-19 19:45] VITALS: BP 136/95
--- NOTE | 2023-08-19 21:10 | NUR ---
AOS: PATIENT IS ALERT AND ORIENTED X 4, SURROUNDED BY FAMILY MEMBERS, RELAXED SITTING UPRIGHT STILL ON 4L VIA NC. REPORTED TO BE IMPROVING IN STATUS FROM DAY RN. DID NOT REQUIRE THE BIPAP DURING THE DAY. PREFERS WHILE FLAT OR SLEEPING TO BE PLACED. BLOOD PRESSURE IS MILDLY DIASTOLICLY ELEVATEED AT 95, NO SIGNS OF CHEST PAIN PRESSURE OR INCREASING SOB. IS MILDLY SOB. DENIES OTHER SYMPRTOMS. RECENTLY TREATED FOR PAIN, CHRONIC PAIN. REPORTED PAIN STIMULATOR FROM DAY RN AND MED NO TELE. POSSIBLE FINE AND MINOR CRACKLES IN THE LOWEST LEFT LOBE. NO CXR SINCE 08/12. WILL RECOMMEND TO DAY TEAM. IMPROVING OVERALL, ENDORSES DECREASED EDEMA OF THE LOWER EXTREMES GENERALIZED BLE AT THIS TIME. DAUGHTER AT BEDSIDE HELPING WITH PATIENT UP TO BSC. SOME MINOR URGENCY. PATIENT CAN WAKE UP MINORLY DISORIENTED BUT REORIENTS QUICKLY. CURRENLTY IS ON 3L VIA BIPAP V30, 06/05 AT 3L BLEED IN. PATIENT TOLERATING MASK WELL, WHILE LYING MINIMAL PT LEAK <10L. NOTHING CURRENLTY INFUSING.
[2023-08-20] VITALS (11 sets, daily range): BP systolic 108–158; BP diastolic 81–109
[2023-08-20 04:56] LABS: BASOPHILS ABSOLUTE AUTO 0.02 K/mm3 (0.00-0.23); BASOPHILS PERCENT AUTO 0 % (0-2); EOSINOPHILS PERCENT AUTO 0 % (0-6); Hemoglobin 12.6 g/dL (11.5-16.0); IMMATURE GRAN ABSOLUTE AUTO 0.29 K/mm3 (0.00-0.10); IMMATURE GRAN PERCENT AUTO 3 % (0-1); LYMPHOCYTES ABSOLUTE AUTO 1.47 K/mm3 (0.84-5.20); LYMPHOCYTES PERCENT AUTO 13 % (21-46); MONOCYTES ABSOLUTE AUTO 0.84 K/mm3 (0.16-1.47); MONOCYTES PERCENT AUTO 7 % (4-13); Mean Corpuscular HGB 31.4 pg (26.0-34.0); Mean Corpuscular HGB Conc 34.1 g/dL (31.5-36.5); Mean Corpuscular Volume 92 fL (80-100); Mean Platelet Volume 10.2 fL (9.1-12.4); NEUTROPHILS PERCENT AUTO 77 % (41-73); Platelet Count 275 K/mm3 (150-400); RDW Standard Deviation 47.4 fL (35.1-46.3); Red Blood Cell Count 4.01 M/mm3 (3.80-5.20); White Blood Cell Count 11.62 K/mm3 (4.00-11.30)
[2023-08-20 05:59] LABS: Bun/Creatinine Ratio 28.5 (12.0-20.0); Calcium, Blood 8.3 mg/dL (8.5-10.1); Creatinine, Blood 0.74 mg/dL (0.40-1.00)
--- NOTE | 2023-08-20 16:36 | NUR ---
SHIFT SUMMARY PT ALERT AND ORIENTED X 4. ANXIOUS AT TIMES. PT O2 ABOVE 92% ON 4L VIA NC. BIPAP NEEDED FOR INCREASED WOB. DR. RANGEL AT BEDSIDE WHILE PT HAD INCREASE IN WOB WITH AUDIBLE WHEEZES. PLAN FOR ENT CONSULT ON TUESDAY. PT MEDICATED ONCE FOR ANXIETY. BP STABLE. HR STABLE. NO CP OR PRESSURE. HR STABLE. FAMILY AT BEDSIDE WITH PT T/O SHIFT. PT SBA TO BATHROOM AND IND WITH TURNS IN BED. CALL LIGHT WITHIN REACH. REPORT TO VIRIDIANA HARRISON TO ASSUME CARE.
[2023-08-20 21:45] LABS: Anti-Xa UFH, PHA Monitoring 0.17 IU/mL; International Normalized Ratio 1.03; Prothrombin Time Results 10.8 Sec (9.7-11.5)
--- NOTE | 2023-08-20 23:03 | NUR ---
AOS: FROM PREVIOUS SHIFT PATIENT HAD BEEN WITH SOME MINOR INCREASED SOB/WOB, MORE DIAPHORETIC AND ON ASSUMPTION WAS ALREADY ON BIPAP, VERSUS YESTERDAY SHE WAS ON NC. PATIENT ADDITIONALY WAS HAVING SOME NARROW PULSE PRESSURES, ON VITALS, PLACED ON TELE AND EKG PREFORMED TO WHICH SHE WAS IN AFIB WITH MINOR RVR. 1 X DOSE OF LOPRESSOR X 5 GIVEN, POWERGLIDE PLACED BY SECONDARY RN. PCU STATUS, TELE IN PLACE, PLACED ON HEPARIN GTT, TSH, ANTI-X, TROP TRENDING Q2 X 3 , INFORM DAY FOR ECHO, PLACING ADDITIONAL CALL HR HAS CONTINUED TO BE IN THE 120'S DID RESPOND AT FIRST. DENIES CHEST PAIN PRESSURE OR SOB CURRENTLY, STILL ON BIPAP, LUNGS SOUND IMPROVED FROM PREVIOUS NIGHT, HOWEVER, UPPER RESPIRATORY WHEEZES AT TIMES.
[2023-08-21] VITALS (14 sets, daily range): BP systolic 112–140; BP diastolic 80–112
[2023-08-21 06:12] LABS: BASOPHILS ABSOLUTE AUTO 0.03 K/mm3 (0.00-0.23); BASOPHILS PERCENT AUTO 0 % (0-2); EOSINOPHILS ABSOLUTE AUTO 0.02 K/mm3 (0.00-0.68); EOSINOPHILS PERCENT AUTO 0 % (0-6); Hematocrit 41.4 % (33.0-51.0); Hemoglobin 13.5 g/dL (11.5-16.0); IMMATURE GRAN ABSOLUTE AUTO 0.56 K/mm3 (0.00-0.10); IMMATURE GRAN PERCENT AUTO 5 % (0-1); LYMPHOCYTES PERCENT AUTO 17 % (21-46); MONOCYTES ABSOLUTE AUTO 0.75 K/mm3 (0.16-1.47); MONOCYTES PERCENT AUTO 6 % (4-13); Mean Corpuscular HGB 30.7 pg (26.0-34.0); Mean Corpuscular HGB Conc 32.6 g/dL (31.5-36.5); Mean Corpuscular Volume 94 fL (80-100); Mean Platelet Volume 11.3 fL (9.1-12.4); NEUTROPHILS PERCENT AUTO 72 % (41-73); Platelet Count 311 K/mm3 (150-400); RDW Coefficient Variation 14.2 % (11.7-14.2); RDW Standard Deviation 49.1 fL (35.1-46.3); White Blood Cell Count 12.36 K/mm3 (4.00-11.30)
[2023-08-21 06:22] LABS: Bun/Creatinine Ratio 25.9 (12.0-20.0); Calcium, Blood 8.4 mg/dL (8.5-10.1); Creatinine, Blood 0.81 mg/dL (0.40-1.00)
--- NOTE | 2023-08-21 06:22 | NUR ---
EOS: NO SIGNIFICANT CHANGES, STILL IN AFIB, HAS NEED PUSHES OF METOPROLOL TO CONTROL RATE BELOW 120. RESPONDS TO THE PUSHES, MAINTAINING BLOOD PRESSURE, PAIN CONTROLLED VIA EMAR MEDS AT THIS TIME. EXTENSIVE EDUCATION HAS BEEN GIVEN ABOUT SITUATION. HEPARIN GTT DID INCREASE TO 16 UNITS. STILL MILDLY SOB, INCREASED WOB. SLIGHLTY IMPROVED. RECOMMENDATION: INCREASE AM METOPROLOL. HELD THYROID DUE TO BEING HYPERTHYROID LEVELS AND DOCTOR HOLD. BNP INCREASED, MAY NEED INCREASED DIURESING.
--- NOTE | 2023-08-21 10:30 | NUR ---
CARE ASSUMPTION PT A&OX4, SP02>90% ON 4.5 L NC, V30 14/7, 3.5L BLEED IN. PT C/O OF SOB W/ AMBULATION/EXERTION. TELEMETRY SHOWS AFIB, HR 110'S, INCREASES TO 160'S W/ AMBULATION. METOPROLOL DOSE INCREASED THIS AM. HEP GTT TURNED OFF, PT STARTED ON ELIQUIS. PT DENIES PAIN. PT UP TO BSC THIS AM TO HAVE BROWN, LIQUID DIARRHEA. PT C/O OF NAUSEA. MD RANGEL NOTIFIED. MD RANGEL W/ ORDERS FOR ZOFRAN, SEE EMAR. BED BATH GIVEN. PT RESTING IN ROOM. DAUGHTER IN ROOM. CALL LIGHT IN REACH.
--- NOTE | 2023-08-21 11:04 | NUR ---
UPDATE MD BURDEN W/ ORDERS TO CHANGE PREDNISONE FROM 60 MG TO 40 MG TO TAPER, SEE EMAR.
--- NOTE | 2023-08-21 16:58 | NUR ---
shift summary pt a&ox4. sp02>90% on 4.5l nc, bipap 14/. pt sob w/ activity. No anxiety attacks noted this shift. telemetry shows afib, hr 100's-160's, avg 120's. echo unable to be done due to elevated hr. pt denies pain. up to bsc to void urgently. pt with multiple episodes of diarrhea this morning, bsc. bed bath given. MD Garcia w/ orders for pt to be off bipap 08/22 from 5 am-5 pm and get a vbg after 12 hrs. Family in room all day. Dog currently in room visiting. Call light in reach. pt sitting on side of bed visiting.
[2023-08-22 05:24] LABS: Base Excess Venous 11.4 mmol/L; Bicarbonate Venous 32.4 mmol/L (24.0-30.0); PCO2 Venous 53.6 mmHg (38-42); pH Blood Venous 7.43 (7.34-7.37)
[2023-08-22 05:27] LABS: BASOPHILS ABSOLUTE AUTO 0.04 K/mm3 (0.00-0.23); BASOPHILS PERCENT AUTO 0 % (0-2); EOSINOPHILS ABSOLUTE AUTO 0.01 K/mm3 (0.00-0.68); EOSINOPHILS PERCENT AUTO 0 % (0-6); Hematocrit 38.3 % (33.0-51.0); Hemoglobin 12.8 g/dL (11.5-16.0); IMMATURE GRAN ABSOLUTE AUTO 0.62 K/mm3 (0.00-0.10); IMMATURE GRAN PERCENT AUTO 5 % (0-1); LYMPHOCYTES ABSOLUTE AUTO 2.05 K/mm3 (0.84-5.20); LYMPHOCYTES PERCENT AUTO 15 % (21-46); MONOCYTES ABSOLUTE AUTO 0.81 K/mm3 (0.16-1.47); MONOCYTES PERCENT AUTO 6 % (4-13); Mean Corpuscular HGB 31.3 pg (26.0-34.0); Mean Corpuscular HGB Conc 33.4 g/dL (31.5-36.5); Mean Corpuscular Volume 94 fL (80-100); Mean Platelet Volume 10.4 fL (9.1-12.4); NEUTROPHILS ABSOLUTE AUTO 10.15 K/mm3 (1.96-9.15); NEUTROPHILS PERCENT AUTO 74 % (41-73); Platelet Count 272 K/mm3 (150-400); RDW Coefficient Variation 14.2 % (11.7-14.2); RDW Standard Deviation 49.2 fL (35.1-46.3); Red Blood Cell Count 4.09 M/mm3 (3.80-5.20); White Blood Cell Count 13.68 K/mm3 (4.00-11.30)
[2023-08-22 05:40] VITALS: BP 159/117
[2023-08-22 06:03] LABS: Anion Gap 6 mmol/L (6-16); Blood Urea Nitrogen 24 mg/dL (8-24); Bun/Creatinine Ratio 28.3 (12.0-20.0); CO2, Blood 33 mmol/L (21-32); Calcium, Blood 8.4 mg/dL (8.5-10.1); Chloride, Blood 99 mmol/L (98-108); Creatinine, Blood 0.85 mg/dL (0.40-1.00); Glomerular Filtration Rate 74 (60-); Glucose, Blood 109 mg/dL (70-99); Phosphorus, Blood 3.2 mg/dL (2.5-4.9); Potassium, Blood 4.1 mmol/L (3.5-5.5); Sodium, Blood 138 mmol/L (136-145)
[2023-08-22 06:30] VITALS: BP 156/107
--- NOTE | 2023-08-22 06:51 | NUR ---
EOS: NO LARGE CHANGES TO ASSUMPTION AND PREVIOUS NIGHT. PLAN FOR ECHO, AND VBG AT 1700. THIS AM WHEN COMING OFF BIPAP AT 0505, INCREASED ANXIETY WOB, RT CALLED FOR TREATMENT, OK'D PER RESIDENT FOR COPD/BD PROTOCOL. VALIUM GIVEN. HELPED VERY WELL. DENIES CHEST PAIN PRESSURE OR SOB. BP IS HYPERTENSIVE THIS AM, AWAITING MORNING MEDS. EKG WAS PREFORMED DUE TO INTERFERENCE ON TELE, COULD NOT CAPTURE WHAT THE TELE WAS ALARMING, WILL INFORM DAY RN. PATIENT FRAGILE, WOULD RECOMMEND PCU STATUS.
[2023-08-22 07:58] VITALS: BP 149/103
[2023-08-22 11:00] VITALS: BP 138/98
[2023-08-22 15:14] VITALS: BP 139/107
--- NOTE | 2023-08-22 18:47 | NUR ---
SHIFT SUMMARY PLAN FOR D/C TOMORROW AFTER HOME TRILOGY AND HOEM O2 ARE SET UP. NO ACUTE EVENTS. PT HAS BEEN ON 2-3L NC T/O THE DAY. SP02 >90%. WE HAD ONE EPISODE OF ANXIETY DURING THE PT'S ECHO. SHE WAS ABLE TO DEEP BREATH/PANT OUT OF IT. ON TELE PT HAS BEEN SR 70'S. NO COMPLAINTS. SEE NOTES FOR ANY UPDATES.
[2023-08-22 20:30] VITALS: BP 152/105
[2023-08-23 03:51] LABS: BASOPHILS ABSOLUTE AUTO 0.03 K/mm3 (0.00-0.23); BASOPHILS PERCENT AUTO 0 % (0-2); EOSINOPHILS ABSOLUTE AUTO 0.01 K/mm3 (0.00-0.68); EOSINOPHILS PERCENT AUTO 0 % (0-6); Hematocrit 39.3 % (33.0-51.0); Hemoglobin 13.1 g/dL (11.5-16.0); IMMATURE GRAN ABSOLUTE AUTO 0.48 K/mm3 (0.00-0.10); IMMATURE GRAN PERCENT AUTO 4 % (0-1); LYMPHOCYTES ABSOLUTE AUTO 1.69 K/mm3 (0.84-5.20); LYMPHOCYTES PERCENT AUTO 14 % (21-46); MONOCYTES ABSOLUTE AUTO 0.69 K/mm3 (0.16-1.47); MONOCYTES PERCENT AUTO 6 % (4-13); Mean Corpuscular HGB 31.2 pg (26.0-34.0); Mean Corpuscular HGB Conc 33.3 g/dL (31.5-36.5); Mean Corpuscular Volume 94 fL (80-100); Mean Platelet Volume 10.5 fL (9.1-12.4); NEUTROPHILS ABSOLUTE AUTO 9.34 K/mm3 (1.96-9.15); NEUTROPHILS PERCENT AUTO 76 % (41-73); Platelet Count 275 K/mm3 (150-400); RDW Coefficient Variation 14.3 % (11.7-14.2); RDW Standard Deviation 49.2 fL (35.1-46.3); White Blood Cell Count 12.24 K/mm3 (4.00-11.30)
[2023-08-23 04:11] LABS: Albumin, Blood 3.2 g/dL (3.4-5.0); Anion Gap 4 mmol/L (6-16); Blood Urea Nitrogen 23 mg/dL (8-24); Bun/Creatinine Ratio 26.9 (12.0-20.0); CO2, Blood 35 mmol/L (21-32); Calcium, Blood 8.4 mg/dL (8.5-10.1); Chloride, Blood 99 mmol/L (98-108); Creatinine, Blood 0.85 mg/dL (0.40-1.00); Glomerular Filtration Rate 74 (60-); Glucose, Blood 118 mg/dL (70-99); Phosphorus, Blood 2.9 mg/dL (2.5-4.9); Potassium, Blood 4.2 mmol/L (3.5-5.5); Sodium, Blood 138 mmol/L (136-145)
--- NOTE | 2023-08-23 05:57 | NUR ---
SUMMARY NO NEW ISSUES. PT HAS BEEN SLEEPING FOR MOST OF SHIFT. PT HAS BEEN SLEEPING WITH BIPAP. PT WOKE UP IN DISCOMFORT AND WAS TX PER MAR WITH RELIEF. PT DAUGHTER STAYED THE NIGHT. PT HAS BEEN UP TO VOID WITHOUT ISSUE. PT CURRNETLY SLEEPING AND IN NO DISTRESS. CALL LIGHT IN REACH.
[2023-08-23 07:28] VITALS: BP 116/104
[2023-08-23] MEDS ORDERED: ELIQUIS5 M2 PO (10:02)
[2023-08-23] MEDS ORDERED: BUSP10 PO (10:03)
[2023-08-23] MEDS ORDERED: FURO20 PO (10:04)
[2023-08-23] MEDS ORDERED: DIAZ2 PO (10:04)
[2023-08-23] MEDS ORDERED: PRED20 PO (10:16)
[2023-08-23 11:58] VITALS: BP 130/81
--- NOTE | 2023-08-23 13:48 | NUR ---
DISCHARGE NOTE PT DISCHARGED FROM PCU AT 1345. VSS AT TIME OF DISCHARGE. EDUCATION, MEDICATION CHANGES, AND FOLLOW UP INSTRUCTIONS REVIEWED WITH PT, DAUGHTER, AND SON. BILATERAL POWERGLIDES REMOVED W/O DIFFICULTY, CATHETER TIPS INTACT. TELEMETRY REMOVED. PT ASSISTED INTO CLOTHING, WHEELED TO PRIVATE VEHICLE BY STAFF ON 2L O2. ALL BELONGINGS GATHERED FROM ROOM AND SENT W/ PT AND FAMILY.
== END 2023-08-23 13:36 | disposition home health service (06) | DRG 189 ==
LOC: ER 09:48 → PCU 12:02
PROVIDERS: Family Medicine; Internal Medicine; Student in an Organized Health Care Education/Training Program; ADMIT Internal Medicine
PROC: 5A09457 Assistance with Respiratory Ventilation, 24-96 Consecutive Hours, Continuous Positive Airway Pressure (ICD-10-PCS; principal; 2023-08-12)
PROC: 5A0935A Assistance with Respiratory Ventilation, Less than 24 Consecutive Hours, High Flow/Velocity Cannula (ICD-10-PCS; 2023-08-16)
DX: J96.21 Acute and chronic respiratory failure with hypoxia (principal); J44.1 Chronic obstructive pulmonary disease with (acute) exacerbation; I50.32 Chronic diastolic (congestive) heart failure; J96.22 Acute and chronic respiratory failure with hypercapnia; M79.7 Fibromyalgia; M06.9 Rheumatoid arthritis, unspecified; F12.90 Cannabis use, unspecified, uncomplicated; M54.9 Dorsalgia, unspecified; G89.29 Other chronic pain; E03.9 Hypothyroidism, unspecified; E66.9 Obesity, unspecified; K52.9 Noninfective gastroenteritis and colitis, unspecified; I48.91 Unspecified atrial fibrillation; F31.9 Bipolar disorder, unspecified; F41.0 Panic disorder [episodic paroxysmal anxiety]; I11.0 Hypertensive heart disease with heart failure; I77.810 Thoracic aortic ectasia; Z88.5 Allergy status to narcotic agent; Z91.018 Allergy to other foods; Z11.52 Encounter for screening for COVID-19; Z91.048 Other nonmedicinal substance allergy status; Z79.890 Hormone replacement therapy; Z79.82 Long term (current) use of aspirin; Z79.899 Other long term (current) drug therapy; Z90.710 Acquired absence of both cervix and uterus; Z87.19 Personal history of other diseases of the digestive system; Z98.890 Other specified postprocedural states; Z87.891 Personal history of nicotine dependence; Z68.28 Body mass index [BMI] 28.0-28.9, adult
CPT/HCPCS: 0241U; 36415; 71045; 80048; 80053; 80069; 82803; 83735; 83880; 84100; 84145; 84443; 84484; 85025; 85520; 85610; 85730; 93005; 93010; 93306; 94640; 94644; 94645; 94660; 94664; 94760; 94761; 94762; 96365; 96375; 97110; 97162; 97530; 99285-25; A9270; C1751; J0456; J1644; J1650; J1940; J2060; J2405; J2930; J7050; J7512

== ENCOUNTER 2023-10-05 18:58 | Inpatient (IN) | payer OTHER ==
[~2023-10-05] VITALS: Ht 170.2 cm; Wt 90.7 kg
[~2023-10-05 18:58] MED LIST changes: +ALLEGRA HIVES180 MG PO; +APRISO0.375 GM PO; +BUSP10 PO; +CYMBALTA60 M1 PO; +DIAZ2 PO; +ELIQUIS5 M2 PO; +FURO20 PO; +GABA300 PO; +METO25ER PO; +NORVASC5 MG PO; +ORAZINC PO; +PRED20 PO
[2023-10-05 19:24] LABS: Hematocrit 35.8 % (33.0-51.0); Hemoglobin 11.5 g/dL (11.5-16.0); Mean Corpuscular HGB 31.8 pg (26.0-34.0); Mean Corpuscular HGB Conc 32.1 g/dL (31.5-36.5); Mean Corpuscular Volume 99 fL (80-100); NRBC ABSOLUTE 0.02 K/mm3 (0.00-0.02); NRBC Auto 0.2 /100 WBC (0.0-0.2); Platelet Count 295 K/mm3 (150-400); RDW Standard Deviation 58.5 fL (35.1-46.3); Red Blood Cell Count 3.62 M/mm3 (3.80-5.20); White Blood Cell Count 8.39 K/mm3 (4.00-11.30)
[2023-10-05 19:50] LABS: BAND PERCENT MAN 11 % (0-8); BASOPHILS PERCENT MAN 0 % (0-2); EOSINOPHILS PERCENT MAN 0 % (0-6); LYMPHOCYTES ABSOLUTE MAN 3.85 K/mm3 (0.84-5.20); LYMPHOCYTES PERCENT MAN 46 % (21-46); MONOCYTES ABSOLUTE MAN 0.25 K/mm3 (0.16-1.47); MONOCYTES PERCENT MAN 3 % (4-13); NEUTROPHILS ABSOLUTE MAN 4.27 K/mm3 (1.96-9.15); SEG NEUTROPHILS PERCENT MAN 40 % (41-73); TOTAL CELLS COUNTED 100
[2023-10-05 19:53] LABS: Albumin, Blood 2.8 g/dL (3.4-5.0); Albumin/Globulin Ratio 0.7 (0.8-1.8); Bilirubin, Total 0.2 mg/dL (0.1-1.0); Bun/Creatinine Ratio 20.7 (12.0-20.0); Creatinine, Blood 0.58 mg/dL (0.40-1.00); Globulin, Blood 3.9 g/dL (2.2-4.0); Potassium, Blood 3.6 mmol/L (3.5-5.5); Total Protein, Blood 6.7 g/dL (6.4-8.2)
[2023-10-05 20:06] LABS: Base Excess Venous 0.3 mmol/L; Bicarbonate Venous 24.1 mmol/L (24.0-30.0); PCO2 Venous 53.6 mmHg (38-42)
[2023-10-05 23:33] VITALS: BP 136/95
--- NOTE | 2023-10-06 00:34 | NUR ---
ORDERS NEW ADMIT ORDERS REVIEWED AND ACKNOWLEDGED. UNABLE TO ACKNOWLEDGE ON [facility].
[2023-10-06 04:27] LABS: Hematocrit 34.5 % (33.0-51.0); Hemoglobin 11.4 g/dL (11.5-16.0); Mean Corpuscular HGB 32.1 pg (26.0-34.0); Mean Corpuscular Volume 97 fL (80-100); Mean Platelet Volume 9.9 fL (9.1-12.4); Platelet Count 276 K/mm3 (150-400); RDW Coefficient Variation 15.9 % (11.7-14.2); RDW Standard Deviation 56.7 fL (35.1-46.3); Red Blood Cell Count 3.55 M/mm3 (3.80-5.20); White Blood Cell Count 7.33 K/mm3 (4.00-11.30)
[2023-10-06 04:30] VITALS: BP 140/96
[2023-10-06 04:52] LABS: Bun/Creatinine Ratio 21.7 (12.0-20.0); Calcium, Blood 8.7 mg/dL (8.5-10.1); Creatinine, Blood 0.51 mg/dL (0.40-1.00); Potassium, Blood 3.7 mmol/L (3.5-5.5)
[2023-10-06 05:23] LABS: BAND PERCENT MAN 16 % (0-8); BASOPHILS PERCENT MAN 0 % (0-2); EOSINOPHILS PERCENT MAN 0 % (0-6); LYMPHOCYTES ABSOLUTE MAN 0.43 K/mm3 (0.84-5.20); LYMPHOCYTES PERCENT MAN 6 % (21-46); MONOCYTES ABSOLUTE MAN 0.29 K/mm3 (0.16-1.47); MONOCYTES PERCENT MAN 4 % (4-13); NEUTROPHILS ABSOLUTE MAN 6.59 K/mm3 (1.96-9.15); SEG NEUTROPHILS PERCENT MAN 74 % (41-73); TOTAL CELLS COUNTED 100
[2023-10-06 08:46] VITALS: BP 139/94
[2023-10-06 12:12] VITALS: BP 116/84
[2023-10-06 15:29] VITALS: BP 132/91
--- NOTE | 2023-10-06 17:47 | NUR ---
SHIFT SUMMARY; ASSUMED CARE AT 0700, A/A/OX4. BIPAP MOST OF SHIFT 30% /. SHORT BREAKS ON NC AT 4L FOR MEDS AND MEALS. REPOSITIONS SELF IN BED WITH ASSISTANCE, WALKED TO RESTROOM WITH SBA. ORAL CARE T/O SHIFT, BED BATH AND HAIR CARE TODAY. VSS, SATS MAINTAINED >95%. NS INFUSING AT 150ML/HR. POWER GLIDE PLACED TODAY TO PAVEL. NO ACUTE CHANGES, WILL CONTINUE TO MONITOR AND TREAT UNTIL CHANGE OF SHIFT.
[2023-10-06 19:45] LABS: SARS-Cov-2 (COVID-19) PCR, MMC POSITIVE (NEGATIVE)
[2023-10-06 20:38] VITALS: BP 117/84
[2023-10-07] VITALS (25 sets, daily range): BP systolic 72–157; BP diastolic 38–124
[2023-10-07 05:24] LABS: pH Blood Arterial <6.80 (7.35-7.45)
[2023-10-07 05:25] LABS: PCO2 Arterial 89.8 mmHg (35-45); PO2 Arterial 60 mmHg (80-100)
--- NOTE | 2023-10-07 05:35 | NUR ---
TRAEarleNFER TO ICU: PT ARRIVED IN ICU AT 0505 FROM PCU 14 POST CARDIAC ARREST. PT INTUBATED, NO SEDATION. ET TUBE REPOSITIONED TO 22 AT TEETH PER RT, CONFIRMED BY XRAY AND HOSPITALIST. SPO2 66%. CURRENTLY TITRATING VENT. FAMILY NOTIFIED OF EVENT PER NURSING UPSETTER HELPER, IN WAITING ROOM CURRENTLY. TEMP FIGUEROA PLACED. OG PLACEMENT CONFIRMED WELL. C COLLAR IN PLACE D/T FALL. PUPILS 3 AND FIXED BILATERALLY. 2 AMPS BICARB GIVEN PER DR. RODRIGUEZ.
--- NOTE | 2023-10-07 05:39 | NUR ---
CODE BLUE AT APPROX 0442 THIS RN WAS CALLED TO ROOM BY SHEET MANAGER AFTER PATIENT WAS FOUND ON THE GROUND. UPON ARRIVAL TO ROOM, PT FOUND LYING FACE DOWN WITH BIPAP MASK STILL ON AND TUBING DISCONNECTED FROM BIPAP. PT UNRESPONSIVE WITH NO PULSE, CHEST COMPRESSIONS STARTED AT APPROX 0443, CODE BLUE INITIATED AT THAT TIME. ROSC OBTAINED AT 0452. TRANSFER TO ICU AT 0509. REPORT GIVEN TO YULI SKIN CARE SPECIALIST.
[2023-10-07 05:52] LABS: Magnesium, Blood 2.5 mg/dL (1.6-2.4)
[2023-10-07 05:57] LABS: Albumin, Blood 2.4 g/dL (3.4-5.0); Albumin/Globulin Ratio 0.6 (0.8-1.8); Alk Phos 111 U/L (50-136); Anion Gap 18 mmol/L (6-16); Bilirubin, Total 0.2 mg/dL (0.1-1.0); Blood Urea Nitrogen 19 mg/dL (8-24); CO2, Blood 18 mmol/L (21-32); Calcium, Blood 8.8 mg/dL (8.5-10.1); Chloride, Blood 105 mmol/L (98-108); Creatinine, Blood 0.83 mg/dL (0.40-1.00); Globulin, Blood 3.8 g/dL (2.2-4.0); Glomerular Filtration Rate 76 (60-); Glucose, Blood 321 mg/dL (70-99); Sodium, Blood 141 mmol/L (136-145); Total Protein, Blood 6.2 g/dL (6.4-8.2)
[2023-10-07 05:59] LABS: Hematocrit 38.2 % (33.0-51.0); Mean Corpuscular HGB 31.4 pg (26.0-34.0); Mean Corpuscular HGB Conc 28.8 g/dL (31.5-36.5); Mean Platelet Volume 10.8 fL (9.1-12.4); NRBC ABSOLUTE 0.04 K/mm3 (0.00-0.02); NRBC Auto 0.3 /100 WBC (0.0-0.2); Platelet Count 360 K/mm3 (150-400); RDW Coefficient Variation 16.4 % (11.7-14.2); RDW Standard Deviation 66.2 fL (35.1-46.3); White Blood Cell Count 15.15 K/mm3 (4.00-11.30)
[2023-10-07 06:01] LABS: Mean Corpuscular Volume 109 fL (80-100)
[2023-10-07 06:08] LABS: Phosphorus, Blood 8.4 mg/dL (2.5-4.9)
[2023-10-07 06:44] LABS: Source, Urine Foley catheter
[2023-10-07 06:52] LABS: BAND PERCENT MAN 6 % (0-8); BASOPHILS ABSOLUTE MAN 0.15 K/mm3 (0.00-0.23); BASOPHILS PERCENT MAN 1 % (0-2); EOSINOPHILS PERCENT MAN 0 % (0-6); LYMPHOCYTES ABSOLUTE MAN 5.45 K/mm3 (0.84-5.20); LYMPHOCYTES PERCENT MAN 36 % (21-46); METAMYELOCYTE ABSOLUTE MAN 0.15 K/mm3 (0.00-0.00); METAMYELOCYTE PERCENT MAN 1 % (0-0); MONOCYTES ABSOLUTE MAN 0.15 K/mm3 (0.16-1.47); MONOCYTES PERCENT MAN 1 % (4-13); MYELOCYTE PERCENT MAN 2 % (0-0); NEUTROPHILS ABSOLUTE MAN 8.93 K/mm3 (1.96-9.15); SEG NEUTROPHILS PERCENT MAN 53 % (41-73); TOTAL CELLS COUNTED 100
[2023-10-07 06:54] LABS: Appearance, Urine Cloudy (Clear); Bilirubin, Urine Neg (Neg); Blood, Urine 5+ (Neg); Color, Urine Yellow (P-Yellow); Glucose Qualitative, Urine Neg (Neg); Ketones, Urine 1+ (Neg); Leukocyte Esterase, Urine Neg (Neg); Nitrite, Urine Neg (Neg); Protein, Urine 2+ (Neg); Urobilinogen, Urine NORM (Normal)
--- NOTE | 2023-10-07 07:02 | NUR ---
UPDATE: PT TAKEN TO CT. CONTINUES TO REMAIN INTUBATED WITH NO SEDATION. NO RESPONSE TO VERBAL OR PAINFUL STIMULI. VENT SETTINGS AC/PC RATE 22, PEEP 15.0, FIO2 100%. SPO2 60'S. PT RESP RATE 30'S. LASIX GIVEN PER DEC. SBP 150'S. HR ST 120'S. TEMP 99.3. NO PURPOSEFUL MOVEMENT, SPASTIC MOVEMENT IN LEFT ARM NOTED. FAMILY AT BEDSIDE AND UPDATED TO PLAN OF CARE.
[2023-10-07 07:07] LABS: Red Blood Cells, Urine 50-100 /hpf (0-2)
[2023-10-07 07:09] LABS: Bacteria Many /hpf; Squamous Epithelial Cells Few /hpf (Few)
--- NOTE | 2023-10-07 07:30 | NUR ---
ASSUMED CARE BEDSIDE REPORT RECIEVED. PT IS INTUBATED. PT INITIALLY NOT SEDATED. RR 40'S PT WITH LABORED BREATHING. PROPOFOL STARTED AT 20 MCG/KG/MIN. VENT SETTINGS AC/PC 22, 20/15, FIO2 100%. UNABLE TO OBTAIN ACCURATE SPO2 READING. RT AND DR HART AWARE. PT DOES NOT RESPOND TO NOXIOUS STIMULI OR HAVE COUGH OR GAG REFLEX. PT WITH SPONTANEOUS AND IRREGULAR MOVEMENTS OF LEFT UPPER EXTREMITY ONLY. PT WITH POWERGLIDE TO PAVEL AND PIV TO RAC. OGT IN PLACE TO LIS WITH RED/BROWN OUTPUT NOTED. PT WITH BRIGHT RED SECRETIONS WITH ETT SUCTION. FIGUEROA TEMP PROBE IN PLACE WITH YELLOW URINE OUTPUT NOTED. PT WITH MULTIPLE SKIN TEARS AND BRUISES TO LEFT UPPER EXTREMITY. MULTIPLE FAMILY MEMBERS IN AND OUT OF THE ROOM. FAMILY UPDATED ABOUT PT'S CONDITION AND POOR PROGNOSIS BY DR HART AND DR RANGEL. WILL CONTINUE TO MONITOR.
[2023-10-07 09:22] LABS: Albumin, Blood 2.2 g/dL (3.4-5.0); Albumin/Globulin Ratio 0.6 (0.8-1.8); Bilirubin, Direct 0.2 mg/dL (0.0-0.3); Bilirubin, Indirect 0.2 mg/dL (0.1-0.7); Bilirubin, Total 0.4 mg/dL (0.1-1.0); Globulin, Blood 3.6 g/dL (2.2-4.0); Total Protein, Blood 5.8 g/dL (6.4-8.2)
--- NOTE | 2023-10-07 09:23 | NUR ---
"Spiritual Care Visit | Family/Physician request Met with Dr. Garcia briefly for an update before visiting Pt. Pt. is intubated after a recent code event. Pts. Daughter and KYLE are at bedside and welcome my visit. Daughter verbalizes that other family memebrs are present in the ICU lounge, and are rotating in to bedside. Facilitated a short life review. Daughter displays evidence of being appropriately concerned. Family requests prayer. Prayer is given. Family verbalizes gratitude for the spiritual care visit, and welcomes this railroad carman to remain involved throughout the day."
[2023-10-07 09:57] LABS: PCO2 Arterial 38.2 mmHg (35-45); pH Blood Arterial 7.15 (7.35-7.45)
[2023-10-07 09:58] LABS: PO2 Arterial 35.2 mmHg (80-100)
--- NOTE | 2023-10-07 11:10 | NUR ---
DR RANGEL UPDATE DR RANGEL INFORMED THIS RN THAT PT FAMILY DOES NOT WANT TO PURSUE ANY FURTHER ESCALATION OF CARE AT THIS TIME. PT TO BE MADE DNR STATUS. AWAITING MORE FAMILY FROM OUT OF STATE BEFORE PLANNING TO PROCEED WITH COMFORT CARE.
--- NOTE | 2023-10-07 12:05 | NUR ---
COMFORT CARE PT WITH MULTIPLE FAMILY MEMBERS AT BEDSIDE. PT FAMILY READY TO TRANISTION TO COMFORT CARE. PT EXTUBATED BY RT AT 1200. PT PLACED ON 2L O2 NC. PT MED WITH ATIVAN AND MORPHINE PER EMAR. GOODRICH AT BEDSIDE.
--- NOTE | 2023-10-07 12:19 | NUR ---
TO TIME OF 1210. DR RANGEL NOTIFIED. FAMILY REMAINS AT BEDSIDE.
--- NOTE | 2023-10-07 12:35 | NUR ---
"Spiritual Care Support | Comfort Care and EOL When this Sand Blaster arrived, Pt. was intubated and not responsive. Pts. daughter and KYLE are at bedside displaying evidence of both apporopriate grief and support for one another. Facilitated a life review, and listened with emapthy, interest, and a calming presence. Daughter verbalize's being unsettled about making a comfort care decision. Prayed with family at bedside. Immediately afterward where many (25+) family members were gathered and actively greiving in the ICU waiting lounge. Meet with family decision makers and [place] with the entire group. Family members were unsettled about NOT being able to ALL gather with the Pt. at bedside for family prayer. When ICU nurse offered the family to all be present, about 20 of them gathered at bedside. Prayer is lead by this water pump servicer and given by the family. Scriptures are read. Pt. daughter reluctantly verbalizedit was time to extubate. Some family members said thir goodbyes and left, while others stayed at bedside. A hymn is played and this water pump servicer read Psalm 23 and prayed again immediately after exubation. Pt. at approximately 1205. Grief support continued for the remaining family members. EOL Education is given, and family decided on [facility] for their home. Reported home choice to ICU staff. Aftward family members verbalized gratitude for the spiritual care support."
== END 2023-10-07 12:10 | DRG 208 ==
LOC: ER 18:58 → PCU 21:36 → ICUE 10-07 05:05
PROVIDERS: Family Medicine; Internal Medicine Critical Care Medicine; Nurse Practitioner Acute Care; Student in an Organized Health Care Education/Training Program; ADMIT Internal Medicine
PROC: 3E033XZ Introduction of Vasopressor into Peripheral Vein, Percutaneous Approach (ICD-10-PCS; principal; 2023-10-05)
PROC: XW033E5 Introduction of Remdesivir Anti-infective into Peripheral Vein, Percutaneous Approach, New Technology Group 5 (ICD-10-PCS; 2023-10-05)
PROC: 0T9B70Z Drainage of Bladder with Drainage Device, Via Natural or Artificial Opening (ICD-10-PCS; 2023-10-05)
PROC: 4A133R1 Monitoring of Arterial Saturation, Peripheral, Percutaneous Approach (ICD-10-PCS; 2023-10-05)
PROC: 5A09457 Assistance with Respiratory Ventilation, 24-96 Consecutive Hours, Continuous Positive Airway Pressure (ICD-10-PCS; 2023-10-05)
PROC: 5A1935Z Respiratory Ventilation, Less than 24 Consecutive Hours (ICD-10-PCS; 2023-10-07)
PROC: 0BH17EZ Insertion of Endotracheal Airway into Trachea, Via Natural or Artificial Opening (ICD-10-PCS; 2023-10-07)
PROC: 5A12012 Performance of Cardiac Output, Single, Manual (ICD-10-PCS; 2023-10-07)
DX: U07.1 COVID-19 (principal); J96.01 Acute respiratory failure with hypoxia; E87.29 Other acidosis; I50.32 Chronic diastolic (congestive) heart failure; J45.901 Unspecified asthma with (acute) exacerbation; G93.1 Anoxic brain damage, not elsewhere classified; M06.9 Rheumatoid arthritis, unspecified; Z66 Do not resuscitate; M79.7 Fibromyalgia; F41.9 Anxiety disorder, unspecified; Z51.5 Encounter for palliative care; M54.9 Dorsalgia, unspecified; J44.9 Chronic obstructive pulmonary disease, unspecified; G89.29 Other chronic pain; J98.6 Disorders of diaphragm; I11.0 Hypertensive heart disease with heart failure; J38.6 Stenosis of larynx; F31.9 Bipolar disorder, unspecified; I48.91 Unspecified atrial fibrillation; R00.1 Bradycardia, unspecified; F12.90 Cannabis use, unspecified, uncomplicated; Z91.011 Allergy to milk products; Z91.018 Allergy to other foods; Z88.8 Allergy status to other drugs, medicaments and biological substances; Z91.048 Other nonmedicinal substance allergy status; Z79.82 Long term (current) use of aspirin; Z79.01 Long term (current) use of anticoagulants; Z79.52 Long term (current) use of systemic steroids; Z79.899 Other long term (current) drug therapy; Z99.81 Dependence on supplemental oxygen; Z86.16 Personal history of COVID-19; Z79.890 Hormone replacement therapy; Z87.19 Personal history of other diseases of the digestive system; Z90.710 Acquired absence of both cervix and uterus; Z98.890 Other specified postprocedural states; Z87.891 Personal history of nicotine dependence
CPT/HCPCS: 31500; 36415; 36600; 51702; 70450; 71045; 72125; 80048; 80053; 80076; 81001; 82330; 82803; 83605; 83735; 83880; 84100; 84145; 84484; 85025; 87040; 87070; 87077; 87086; 87185; 87186; 87205; 92950; 93005; 93010; 94002; 94640; 94644; 94660; 94664; 94762; 99285-25; A9270; J0248; J1940; J2060; J2270; J2704; J2930; J7030; J7050; J7120; U0002